=== PATIENT | male | born 1985 | race American Indian/Alaskan Native ===

== ENCOUNTER 2017-01-15 16:23 | Emergency (ER) | payer SELFPAY ==
[2017-01-15 18:53] LABS: Bilirubin,Urine NEG (Negative); Blood,Urine NEG (Negative); Ketones,Urine NEG (Negative); Leukocyte Esterase,Urine NEG (Negative); Mucus,Urine 2+ /HPF; Nitrite,Urine NEG (Negative); Protein,Urine <15 mg/dL mg/dL (Negative); Urobilinogen,Urine < 2.0 mg/dL (<2.0)
[2017-01-15 19:03] LABS: Basophils % (Auto) 0.7 % (0.0-1.8); Eosinophils % (Auto) 1.1 % (0.0-4.3); Hematocrit 47.6 % (35.5-45.6); Mean Corpuscular HGB Conc 32 % (32-34); Mean Corpuscular Volume 74 fl (84-94); Platelet Count 229 K/mm3 (140-440); Red Blood Count 6.42 M/mm3 (3.65-5.03); Red Cell Distribution Width 15.9 % (13.2-15.2); White Blood Count 7.7 K/mm3 (4.5-11.0)
[2017-01-15 19:06] LABS: Mean Corpuscular Hemoglobin 23 pg (28-32)
[2017-01-15 20:03] LABS: Alanine Aminotransferase 34 units/L (7-56); Albumin 4.6 g/dL (3.9-5); Albumin/Globulin Ratio 1.2 %; Alkaline Phosphatase 69 units/L (35-129); Anion Gap 18 mmol/L; BUN/Creatinine Ratio 11.81; Bilirubin,Total 1.2 mg/dL (0.1-1.2); Blood Urea Nitrogen 13 mg/dL (9-20); Calcium 9.7 mg/dL (8.4-10.2); Carbon Dioxide 27 mmol/L (22-30); Chloride 96.2 mmol/L (98-107); Glucose 137 mg/dL (75-100); Lipase 15 units/L (13-60); Sodium 137 mmol/L (137-145); Total Protein 8.4 g/dL (6.3-8.2)
[2017-01-16 00:40] VITALS: BP 122/82
[2017-01-16] MEDS ORDERED: NORCO 7.5/325 PO ONE (00:50)
[2017-01-16] MEDS ORDERED: ALUM-MAG HYDROX-SIMETH 200-200-20MG/5ML PO ONE (00:50)
[2017-01-16] MEDS ORDERED: LIDOCAINE VISCOUS 2% PO ONE (00:50)
[2017-01-16] MEDS ORDERED: PEPCID PO ONE (00:51)
--- NOTE | 2017-01-16 00:52 | Emergency Department Report ---
HPI - General Chief Complaint: Abdominal Pain Time Seen by Provider: 01/16/17 00:16 - HPI HPI: The patient's 31-year-old male who presents for evaluation of abdominal pain. The patient reports left upper quadrant abdominal pain for the past 3 days, [place], 9/10 in severity, burning and sharp in quality, exacerbated with eating of greasy and spicy foods. He shares that is expressing the pain in the past and was informed that he has gallstones. The patient denies trauma to the abdomen, chest or flank. He also denies chest pain, dyspnea, fever, chills, night sweats, diarrhea, blood in the stool, dark tarry stool, dysuria, hematuria , flank pain, inability to pass flatus or defecate . ED Past Medical Hx - Past Medical History Previous Medical History?: Yes Additional medical history: gallstones - Surgical History Past Surgical History?: Yes Additional Surgical History: L ankle. R hip - Social History Smoking Status: Never Smoker Substance Use Type: None - Medications Home Medications: Home Medications Medication Instructions Recorded Confirmed Last Taken Type HYDROcodone/APAP 5-325 [[place] 1 each PO Q6HR PRN #14 tablet 04/24/16 Unknown Rx 5/325] Ibuprofen [Motrin] 800 mg PO Q8HR PRN #20 tablet 09/25/16 Unknown Rx Sulfamethoxazole/Trimethoprim 1 each PO BID #14 tablet 09/25/16 Unknown Rx [Bactrim DS TAB] ED Review of Systems ROS: Stated complaint: ABD PAIN Other details as noted in HPI Constitutional: denies: fever ENT: denies: throat or neck pain Respiratory: denies: cough, shortness of breath Cardiovascular: denies: chest pain Endocrine: denies unexplained weight loss or gain Gastrointestinal: reports abdominal pain, nausea Genitourinary: denies: dysuria Musculoskeletal: denies: leg swelling Skin: denies: rash Neurological: denies: headache Hematological/Lymphatic: denies: easy bleeding or easy bruising Psych: denies sadness or hopelessness Physical Exam - Physical Exam Vital Signs: Vital Signs 01/15/17 01/16/17 17:09 00:39 Temperature 99.0 F Pulse Rate 102 H 87 Respiratory 18 16 Rate Blood Pressure 127/88 Blood Pressure 122/82 [Left] O2 Sat by Pulse 98 95 Oximetry Physical Exam: General: well-nourished, well-developed, no acute distress Head: Normocephalic, atraumatic Eyes: normal sclera ENT: Mucous membranes are pale and dry Neck: trachea midline, neck supple, No neck stiffness, no cervical adenopathy Respiratory: Breath sounds equal bilaterally, no wheezing, rales, or rhonchi Cardio: S1 and S2 present, no murmurs, rubs, gallops, capillary refill is delayed Abdomen: Normoactive bowel sounds, soft abdomen, LUQ and epigatric tenderness to palpation present, no rigidity, no guarding or rebound tenderness, no pain at McBurney's point Musc: No pitting edema Skin: No rash Neuro: no facial drooping, normal speech Psych: Normal affect ED Course Vital Signs 01/15/17 01/16/17 17:09 00:39 Temperature 99.0 F Pulse Rate 102 H 87 Respiratory 18 16 Rate Blood Pressure 127/88 Blood Pressure 122/82 [Left] O2 Sat by Pulse 98 95 Oximetry ED Medical Decision Making - Lab Data Result diagrams: 01/15/17 18:39 01/15/17 18:39 - Medical Decision Making The patient was seen and examined by myself. The patient is placed on a studio set up worker and continuous pulse ox. On initial evaluation, the patient was found to be in no distress. Evaluation orders are placed. The patient is given a GI cocktail, Pepcid, and a tablet of [place] for his pain. Lab results revealed elevated RBC and hematocrit, near elevated hemoglobin, consistent with hemoconcentration exam findings of dehydration, and otherwise labs were non- concerning including normal WBC, LFTs, lipase, and urinalysis. The patient was reevaluated and reported that their symptoms were markedly improved. The patient is stable for discharge with outpatient follow-up. The patient is given follow-up and return instructions. The patient expressed understanding and agreed with the plan. The patient is discharged in stable condition. Critical care attestation.: If time is entered above; I have spent that time in minutes in the direct care of this critically ill patient, excluding procedure time. ED Disposition Clinical Impression: Acute abdominal pain in left upper quadrant Disposition: DISCHARGED TO HOME OR SELFCARE Is pt being admited?: No Does the pt Need Aspirin: No Condition: Stable Referrals: PRIMARY CARE, [Primary Care Provider] - 3-5 Days Time of Disposition: 00:52
== END 2017-01-16 03:45 | disposition home or self-care (01) ==
LOC: ED 16:23
DX: R10.12 Left upper quadrant pain (principal)
CPT/HCPCS: 36415; 80053; 81001; 83690; 85025; 99284